=== PATIENT | female | born 1990 | race Caucasian/White ===

== ENCOUNTER 2021-07-19 05:30 | Day surgery (SDC) | payer BC, SELFPAY ==
[2021-07-16 19:22] LABS: BASOPHILS # (AUTO) 0.1 K/uL (0.0-0.2); BASOPHILS % (AUTO) 0.7 % (0.0-2.0); EOSINOPHILS # (AUTO) 0.2 K/uL (0.0-0.4); EOSINOPHILS % (AUTO) 1.9 % (0.0-4.0); HEMATOCRIT 40.4 % (36-48); HEMOGLOBIN 13.7 g/dL (12.0-16.0); LYMPHOCYTES # (AUTO) 3.1 K/uL (1.0-5.5); LYMPHOCYTES % (AUTO) 38.2 % (20.5-51.5); MEAN CORPUSCULAR HEMOGLOBIN 29 pg (27-31); MEAN CORPUSCULAR HGB CONC 34 % (32-36); MEAN CORPUSCULAR VOLUME 84 fL (79.0-98.0); MONOCYTES # (AUTO) 0.5 K/uL (0.0-1.0); MONOCYTES % (AUTO) 5.6 % (1.7-9.3); NEUTROPHILS # (AUTO) 4.3 K/uL (1.8-7.7); NEUTROPHILS % (AUTO) 53.6 % (40.0-70.0); PLATELET COUNT (AUTO) 291 K/uL (130-430); RED BLOOD CELL COUNT(AUTO) 4.82 MIL/uL (4.2-6.2); RED CELL DISTRIBUTION WIDTH 13.4 % (9.0-15.0); WHITE BLOOD COUNT (AUTO) 8.1 K/uL (4.8-10.8)
[2021-07-16 19:24] LABS: ALBUMIN 4.4 g/dL (3.4-4.8); CALCIUM 9.7 mg/dL (8.4-11.0); CREATININE 0.75 mg/dL (0.55-1.30); POTASSIUM 3.9 mmol/L (3.5-5.1); TOTAL BILIRUBIN 0.2 mg/dL (0.0-1.0)
[~2021-07-19] VITALS: Ht 167.6 cm; Wt 84.4 kg
[2021-07-19 06:54] LABS: HCG,QUAL RESULT NEGATIVE (NEGATIVE)
[2021-07-19] MEDS ORDERED: CEFAZOLIN SOD 2 GM in D5W 50 ML IV ONE (07:00)
[2021-07-19] MEDS ORDERED: DEXAMETHASONE SOD PHOSPHATE 4 MG/ML VIAL ONE (07:29)
[2021-07-19] MEDS ORDERED: BUPIVACAINE /EPINEPHRINE/PF 0.25% 30 ML VIAL INJ ONE (07:29)
[2021-07-19] MEDS ORDERED: LIDOCAINE 2%, 20 ML MDV ONE (07:29)
[2021-07-19] MEDS ORDERED: NS 1000 ML IV.SOLN IV ONE (07:29)
[2021-07-19] MEDS ORDERED: MIDAZOLAM HCL 5 MG/ML VIAL (VERSED) IV ONE (07:29)
[2021-07-19] MEDS ORDERED: LR 1,000 ML IV.SOLN IV ONE (07:29)
[2021-07-19] MEDS ORDERED: PROPOFOL 200MG/ 20ML VIAL (DIPRIVAN) IV ONE (07:29)
[2021-07-19] MEDS ORDERED: ePHEDrine sulfate 50 MG/ML VIAL ONE (07:29)
[2021-07-19] MEDS ORDERED: SUGAMMADEX SODIUM 200 MG/2 ML VIAL IV ONE (07:29)
[2021-07-19] MEDS ORDERED: ROCURONIUM BROMIDE 10 MG/ML (ZEMURON) ONE (07:29)
[2021-07-19] MEDS ORDERED: ceFAZolin SODIUM 1 GM VIAL ONE (07:29)
[2021-07-19] MEDS ORDERED: SEVOFLURANE 15 MIN GAS INH ONE (07:29)
[2021-07-19] MEDS ORDERED: HYDROmorphone 2 MG/ML VIAL ONE (07:29)
[2021-07-19] MEDS ORDERED: ONDANSETRON HCL 4 MG/2 ML VIAL IVP PRN ×2 (10:45)
[2021-07-19] MEDS ORDERED: ONDANSETRON HCL 4 MG/2 ML VIAL IM PRN (10:45)
[2021-07-19] MEDS ORDERED: KETOROLAC TROMETHAMINE 30 MG VIAL IVP PRN (10:45)
[2021-07-19] MEDS ORDERED: HYDROmorphone 1 MG/ML INJ. CARTRIDGE IVP PRN ×2 (10:45)
[2021-07-19] MEDS ORDERED: KETOROLAC TROMETHAMINE 30 MG VIAL ONE (11:11)
[2021-07-19 13:43] VITALS: BP_SYST 120
== END 2021-07-19 13:43 | disposition home or self-care (01) ==
LOC: SMU 05:30 → SDS 05:30
PROVIDERS: ATTEND Obstetrics & Gynecology
DX: N93.9 Abnormal uterine and vaginal bleeding, unspecified (principal); N80.9 Endometriosis, unspecified; R10.2 Pelvic and perineal pain; Z91.040 Latex allergy status; G89.18 Other acute postprocedural pain; Z79.899 Other long term (current) drug therapy; Z20.822 Contact with and (suspected) exposure to COVID-19
CPT/HCPCS: 36415 ×3; 58571; 80053; 84703; 85025; 86886; 86900; 86901; 87426; 88307; 93005; C1727; J0690; J1100; J1170; J1885; J2001; J2250; J2704; J3490 ×2; J7030; J7060; J7120; U0003; E0190